=== PATIENT | female | born 1995 | race Caucasian/White ===

== ENCOUNTER 2017-07-11 17:07 | Emergency (ER) | payer OTHER ==
[2017-07-11 17:14] VITALS: RESP 18; TEMP 98.2
--- NOTE | 2017-07-11 17:27 | EDPHY ---
H & P Smoking Status: Never smoked Time Seen by Provider: 07/11/17 17:18 HPI/ROS: CHIEF COMPLAINT: Possible infection left hand HISTORY OF PRESENT ILLNESS: 22-year-old immunocompetent, [id number] female states that 4 days ago she was sliding her left hand against a banister and sustained a wood splinter to her left palm distal phalanx at the level of the MCP. She was able to pick pieces of the splinter out herself. She was seen at [facility] the next day, started on prophylactic Augmentin, was seen again today and told to go to the ER for further evaluation, possible IV antibiotics. She notes progressively decreased range of motion of the fingers at the MCP. No lymphangitic streaking. No fever no chills no nausea no vomiting. PHYSICAL EXAM (Prior to examination, patient consented to physical exam, hands were washed and my usual and customary physical exam procedures followed) 1) GENERAL: Well-developed, well-nourished, alert and oriented. Appears to be in no acute distress. 2) HEAD: Normocephalic 3) HEENT: Pupils equal, round, reactive to light bilaterally. 4) LUNGS: Breathing comfortably. 5) MUSCULOSKELETAL: Left hand: At the level of the 2nd MCP palmar aspect there is a noted puncture wound with erythema extending toward the ulnar aspect. There is also show she had tenderness, induration and firmness, possible foreign body. She has pain with passive extension of the digits at the level of the MCP 6) SKIN: No lymphangitic streaking. No epitrochlear or axillary adenopathy or tenderness. 7) VASCULAR: pulses and cap refill present are brisk DIFFERENTIAL DIAGNOSIS: In no particular order including but not limited to retained foreign body, cellulitis, abscess, deep space infection, necrotizing fasciitis (Madeleine Castillo) Constitutional: Initial Vital Signs Temperature (C) 36.8 C 07/11/17 17:12 Heart Rate 84 07/11/17 17:12 Respiratory Rate 18 07/11/17 17:12 Blood Pressure 134/76 H 07/11/17 17:12 O2 Sat (%) 98 07/11/17 17:12 O2 Delivery Mode Room Air Allergies/Adverse Reactions: methanol Allergy (Uncoded 09/15/15 19:55) Home Medications: Medication Instructions Recorded Amox Tr/Potassium Clavulanate 1 each PO 07/11/17 [Augmentin 1000MG ER Tablet (*)] Bcps 07/11/17 ED Images - Extremities Hands Front Left/Right: 1 - Puncture wound 2 - Soft tissue swelling MDM/Departure - MDM Procedures: Procedure: Splint A Velcro volar splint was applied by ER diesel technician mechanic. After application of the splint I returned and re-examined the patient. The splint was adequately immobilizing the joint and distal to the splint the patient's circulation and sensation were intact. Patient shows no signs of compartment syndrome. Was given orthopedic precautions. (Madeleine Castillo) ED Course/Re-evaluation: 6:03 p.m.: Phone consultation with on-call hand surgery Dr. Baldev Lynn who recommends ultrasound, he would like to see the patient in his office tomorrow. (Madeleine Castillo) The patient was evaluated and managed by the physician's shop assistant. My cosignature indicates that I reviewed the chart and I agree with the findings and plan of care as documented. I am the secondary supervising physician. I personally went evaluated the patient. I agree with Rajeev Castillo's exam. Plan is to obtain ultrasound of the hand looking for foreign body. Hand surgery was consulted. (Melody Ragland) - Depart Disposition: Home, Routine, Self-Care Clinical Impression: Infection of left hand Condition: Good Instructions: Cellulitis (ED) Additional Instructions: Dr. Baldev Lynn is an orthopedic/hand surgeon. Call Dr. Baldev Lynn office in the morning, tell them that we spoke and he wants to see when the ER tomorrow afternoon. Do not have anything to eat or drink after midnight tonight. Keep your hand elevated above the level of your head and keep the splint on. Keep taking your antibiotics as directed Referrals: Baldev Lynn MD [Medical Doctor] - 1 day without fail (Call Dr. Baldev Lynn office in the morning, tell them that we spoke and he wants to see when the ER tomorrow afternoon. Do not have anything to eat or drink after midnight tonight. Keep your hand elevated above the level of your head and keep the splint on.)
[2017-07-11 19:31] VITALS: BP 119/76; PULSE 71; O2SAT 97
== END 2017-07-11 19:30 | disposition home or self-care (01) ==
DX: L08.9 Local infection of the skin and subcutaneous tissue, unspecified (principal)
CPT/HCPCS: L3908